=== PATIENT | female | born 1950 | race Caucasian/White ===

== ENCOUNTER 2017-06-05 14:30 | Emergency (ER) | payer MEDICARE, BC ==
[~2017-06-05] VITALS: Ht 170.2 cm; Wt 112.0 kg
[2017-06-05 14:54] VITALS: BP 158/85; PULSE 72; RESP 16; TEMP 98.3; O2SAT 97
[2017-06-05] MEDS ORDERED: HYDR25TA5 PO (15:24)
[2017-06-05] MEDS ORDERED: ASPI-183 PO (15:24)
[2017-06-05] MEDS ORDERED: TRAZ50TA12 PO (15:24)
[2017-06-05] MEDS ORDERED: METF1000 PO (15:24)
[2017-06-05] MEDS ORDERED: SERT-129 PO (15:24)
[2017-06-05] MEDS ORDERED: ATEN50TA PO (15:24)
[2017-06-05] MEDS ORDERED: VALS1TAB65 PO (15:24)
[2017-06-05] MEDS ORDERED: SIMV40TA PO (15:24)
[2017-06-05] MEDS ORDERED: SITA1TAB2 PO (15:24)
[2017-06-05] MEDS ORDERED: SODIUM CHLORID 0.9% 500 ML INJ 500 ML IV ONE (15:30)
--- NOTE | 2017-06-05 15:37 | PD ---
HPI Chief Complaint: GI Complaint Time Seen by Provider: 15:13 Travel History International Travel<30 days: No Contact w/Intl Traveler<30days: No Traveled to known affect area: No History of Present Illness HPI Patient is a 66-year-old female who comes in complaining of congestion, cough, diarrhea. She says she has had a cough with congestion for the past week and feels a dripping down her throat. She says the past 3 days, she has had diarrhea. She took an Imodium yesterday which helped until this morning when she had another episode. She went to urgent care today who told her they thought she could benefit from an antibiotic, but were worried that it could increase her diarrhea. She is not having fevers. She says she has some nausea from the postnasal drip, but denies any vomiting. She denies any abdominal pain. She says she has a lot of pressure in her sinuses. She has tried Mucinex without much relief. Severity is mild to moderate. PFSH Past Medical History Hx Anticoagulant Therapy: Yes (asa 325mg ) Anxiety: Yes Cardiovascular Problems: Yes (htn on meds) High Cholesterol: Yes Diabetes: Yes (type 2) Patient Takes Glucophage: Yes Hypertension: Yes ?: Not Past Surgical History Hysterectomy: Yes Social History Alcohol Use: No Tobacco Use: No (FORMER) Substance Use: No Allergies-Medications (Allergen,Severity, Reaction): Coded Allergies: codeine (Verified Allergy, Intermediate, restless, 06/05/17) Reported Meds & Prescriptions Reported Meds & Active Scripts Active Cipro (Ciprofloxacin HCl) 500 Mg Tab 500 Mg PO BID 5 Days Reported Sertraline (Sertraline HCl) 100 Mg Tab 100 Mg PO HS Trazodone (Trazodone HCl) 50 Mg Tab 50 Mg PO HS Januvia (Sitagliptin Phosphate) 100 Mg Tab 100 Mg PO DAILY Valsartan 160 Mg Tab 160 Mg PO BID Simvastatin 40 Mg Tab 40 Mg PO HS Metformin (Metformin HCl) 1,000 Mg Tab 1,000 Mg PO BIDPC Atenolol 50 Mg Tab 50 Mg PO DAILY Hydrochlorothiazide 25 Mg Tab 25 Mg PO DAILY Aspirin 325 Mg Tab 325 Mg PO DAILY Review of Systems Except as stated in HPI: all other systems reviewed are Neg General / Constitutional: No: Fever, Chills HENT: Positive: Congestion, No: Headaches, Lightheadedness Cardiovascular: No: Chest Pain or Discomfort Respiratory: Positive: Cough Gastrointestinal: Positive: Nausea, Diarrhea, No: Vomiting, Abdominal Pain Genitourinary: No: Dysuria Musculoskeletal: Positive: Weakness, No: Myalgias, Edema Skin: No Rash, No Change in Pigmentation Neurologic: No: Weakness, Dizziness Physical Exam Narrative GENERAL: Awake and alert, in no acute distress. SKIN: Focused skin assessment warm/dry. HEAD: Atraumatic. Normocephalic. EYES: Pupils equal and round. No scleral icterus. ENT: Mucous membranes pink and moist. NECK: Trachea midline. No JVD. CARDIOVASCULAR: Regular rate and rhythm. No murmur appreciated. RESPIRATORY: No accessory muscle use. Clear to auscultation. Breath sounds equal bilaterally. GASTROINTESTINAL: Abdomen soft, non-tender, nondistended. MUSCULOSKELETAL: No obvious deformities. No clubbing. No cyanosis. No edema. NEUROLOGICAL: Awake and alert. No obvious cranial nerve deficits. Motor grossly within normal limits. Normal speech. PSYCHIATRIC: Appropriate mood and affect; insight and judgment normal. Data Data Last Documented VS Vital Signs Date Time Temp Pulse Resp B/P (MAP) Pulse Ox O2 Delivery O2 Flow Rate FiO2 06/05/17 17:20 72 16 138/79 (98) 97 06/05/17 14:54 98.3 Orders Orders Iv Access Insert/Monitor (06/05/17 15:19) Complete Blood Count With Diff (06/05/17 15:19) Comprehensive Metabolic Panel (06/05/17 15:19) Chest, Pa & Lat (06/05/17 ) Influenzae A/B Antigen (06/05/17 15:19) Urinalysis - C+S If Indicated (06/05/17 15:19) Sodium Chlorid 0.9% 500 Ml Inj (Ns 500 M (06/05/17 15:30) Potassium Chloride (Kcl) (06/05/17 16:15) Ciprofloxacin (Cipro) (06/05/17 17:15) Ed Discharge Order (06/05/17 17:05) Labs Laboratory Tests Test 06/05/17 15:20 06/05/17 15:37 Urine Collection Type CLEAN CATCH Urine Color YELLOW Urine Turbidity CLEAR Urine pH 5.5 Urine Specific [place] 1.017 Urine Protein NEG mg/dL Urine Glucose (UA) NEG mg/dL Urine Ketones NEG mg/dL Urine Occult Blood NEG Urine Nitrite NEG Urine Bilirubin NEG Urine Leukocyte Esterase NEG Urine Squamous Epithelial Cells 0-5 /hpf Urine Amorphous Sediment SMALL Urine Bacteria RARE /hpf Microscopic Urinalysis Comment CULT NOT INDICATED White Blood Count 6.4 TH/MM3 Red Blood Count 4.95 MIL/MM3 Hemoglobin 13.9 GM/DL Hematocrit 40.4 % Mean Corpuscular Volume 81.7 FL Mean Corpuscular Hemoglobin 28.1 PG Mean Corpuscular Hemoglobin Concent 34.4 % Red Cell Distribution Width 12.6 % Platelet Count 210 TH/MM3 Mean Platelet Volume 8.1 FL Neutrophils (%) (Auto) 61.1 % Lymphocytes (%) (Auto) 27.4 % Monocytes (%) (Auto) 9.3 % Eosinophils (%) (Auto) 1.8 % Basophils (%) (Auto) 0.4 % Neutrophils # (Auto) 3.9 TH/MM3 Lymphocytes # (Auto) 1.8 TH/MM3 Monocytes # (Auto) 0.6 TH/MM3 Eosinophils # (Auto) 0.1 TH/MM3 Basophils # (Auto) 0.0 TH/MM3 CBC Comment DIFF FINAL Differential Comment Blood Urea Nitrogen 11 MG/DL Creatinine 0.80 MG/DL Random Glucose 159 MG/DL Total Protein 8.3 GM/DL Albumin 3.5 GM/DL Calcium Level 8.8 MG/DL Alkaline Phosphatase 85 U/L Aspartate Amino Transf (AST/SGOT) 22 U/L Alanine Aminotransferase (ALT/SGPT) 30 U/L Total Bilirubin 0.5 MG/DL Sodium Level 134 MEQ/L Potassium Level 3.1 MEQ/L Chloride Level 97 MEQ/L Carbon Dioxide Level 31.0 MEQ/L Anion Gap 6 MEQ/L Estimat Glomerular Filtration Rate 72 ML/MIN [facility] Medical Decision Making Medical Screen Exam Complete: Yes Emergency Medical Condition: Yes Differential Diagnosis Viral illness versus influenza versus electrolyte abnormality versus dehydration versus pneumonia Narrative Course Patient is a 66-year-old female who comes in complaining of cough, congestion, diarrhea. Exam shows no acute abnormalities. IV establish, labs sent. Chest x -ray ordered. Given IV fluids. Signed out to Dr. Browne to follow up testing and disposition the patient. Scripts Ciprofloxacin (Cipro) 500 Mg Tab 500 MG PO BID for Infection for 5 Days, #10 TAB 0 Refills Prov: Leighton Browne MD 06/05/17 Ida Crouch MD Jun 05, 2017 15:37
[2017-06-05 15:52] LABS: AUTOMATED NEUTROPHIL # 3.9 TH/MM3 (1.8-7.7); BASOPHIL % 0.4 % (0.0-2.0); EOSINOPHIL # 0.1 TH/MM3 (0-0.4); EOSINOPHIL % 1.8 % (0.0-4.0); HEMATOCRIT 40.4 % (35.0-46.0); HEMOGLOBIN 13.9 GM/DL (11.6-15.3); LYMPH % 27.4 % (9.0-44.0); LYMPHOCYTE # 1.8 TH/MM3 (1.0-4.8); MEAN CELL VOLUME 81.7 FL (80.0-100.0); MEAN CORPUSCULAR HEMOGLOBIN 28.1 PG (27.0-34.0); MEAN CORPUSCULAR HGB CONC 34.4 % (32.0-36.0); MEAN PLATELET VOLUME 8.1 FL (7.0-11.0); MONO % 9.3 % (0.0-8.0); MONOCYTE # 0.6 TH/MM3 (0-0.9); NEUT % 61.1 % (16.0-70.0); PLATELET COUNT 210 TH/MM3 (150-450); RED BLOOD COUNT 4.95 MIL/MM3 (4.00-5.30); RED CELL DISTRIBUTION WIDTH 12.6 % (11.6-17.2); WHITE BLOOD COUNT 6.4 TH/MM3 (4.0-11.0)
[2017-06-05 15:55] LABS: BILIRUBIN, URINE NEG (NEG); BLOOD, URINE NEG (NEG); GLUCOSE,URINE NEG (NEG); KETONE, URINE NEG (NEG); NITRITE,URINE NEG (NEG); PH, URINE 5.5 (5.0-8.5); URINE LEUKOCYTE ESTERASE NEG (NEG)
[2017-06-05 16:00] LABS: CHLORIDE 97 MEQ/L (98-107); SODIUM (NA) 134 MEQ/L (136-145)
[2017-06-05 16:03] LABS: CALCIUM 8.8 MG/DL (8.5-10.1)
[2017-06-05 16:03] LABS: URINE COLOR YELLOW (YELLW/STRAW)
[2017-06-05 16:04] LABS: BACTERIA, URINE RARE /hpf; SQUAMOUS EPITHELIAL CELL URINE 0-5 /hpf (0-5)
[2017-06-05 16:04] LABS: ALBUMIN 3.5 GM/DL (3.4-5.0); BLOOD UREA NITROGEN 11 MG/DL (7-18); GLUCOSE,RANDOM 159 MG/DL (74-106)
[2017-06-05 16:05] LABS: AMORPHOUS SEDIMENT, URINE SMALL
[2017-06-05 16:07] LABS: ALT (GPT) 30 U/L (10-53); AST (GOT) 22 U/L (15-37); GLOMERULAR FILTRATION RATE 72 ML/MIN (>89)
[2017-06-05 16:08] LABS: TOTAL BILIRUBIN ADULT 0.5 MG/DL (0.2-1.0)
[2017-06-05 16:09] LABS: TOTAL PROTEIN 8.3 GM/DL (6.4-8.2)
[2017-06-05 16:10] LABS: ALKALINE PHOSPHATASE 85 U/L (45-117)
[2017-06-05] MEDS ORDERED: POTASSIUM CHLORIDE 20 MEQ CONTROLLED RELEASE TAB PO ONE (16:15)
--- NOTE | 2017-06-05 16:24 | RADRPT ---
EXAM DATE/TIME: 06/05/2017 16:09 [place] COMPARISON: No previous studies available for comparison. INDICATIONS : Cough. MEDICAL HISTORY : None. SURGICAL HISTORY : None. ENCOUNTER: Initial ACUITY: 1 week PAIN SCORE: 0/10 LOCATION: chest FINDINGS: PA and lateral views of the chest demonstrate the lungs to be symmetrically aerated without evidence of mass, infiltrate or effusion. The cardiomediastinal contours are unremarkable. Osseous structure s are intact with minimal degenerative disc disease of the dorsal spine. CONCLUSION: No acute cardiopulmonary process. Eddie Zeng MD on June 05, 2017 at 16:19 Board Certified Radiologist. This report was verified electronically.
[2017-06-05] MEDS ORDERED: CIPR-9 PO (17:04)
--- NOTE | 2017-06-05 17:04 | PD ---
Data Data Last Documented VS Vital Signs Date Time Temp Pulse Resp B/P (MAP) Pulse Ox O2 Delivery O2 Flow Rate FiO2 06/05/17 15:15 16 06/05/17 14:54 98.3 72 158/85 (109) 97 Orders Orders Iv Access Insert/Monitor (06/05/17 15:19) Complete Blood Count With Diff (06/05/17 15:19) Comprehensive Metabolic Panel (06/05/17 15:19) Chest, Pa & Lat (06/05/17 ) Influenzae A/B Antigen (06/05/17 15:19) Urinalysis - C+S If Indicated (06/05/17 15:19) Sodium Chlorid 0.9% 500 Ml Inj (Ns 500 M (06/05/17 15:30) Potassium Chloride (Kcl) (06/05/17 16:15) Ciprofloxacin (Cipro) (06/05/17 17:15) Labs Laboratory Tests Test 06/05/17 15:20 06/05/17 15:37 Urine Collection Type CLEAN CATCH Urine Color YELLOW Urine Turbidity CLEAR Urine pH 5.5 Urine Specific [place] 1.017 Urine Protein NEG mg/dL Urine Glucose (UA) NEG mg/dL Urine Ketones NEG mg/dL Urine Occult Blood NEG Urine Nitrite NEG Urine Bilirubin NEG Urine Leukocyte Esterase NEG Urine Squamous Epithelial Cells 0-5 /hpf Urine Amorphous Sediment SMALL Urine Bacteria RARE /hpf Microscopic Urinalysis Comment CULT NOT INDICATED White Blood Count 6.4 TH/MM3 Red Blood Count 4.95 MIL/MM3 Hemoglobin 13.9 GM/DL Hematocrit 40.4 % Mean Corpuscular Volume 81.7 FL Mean Corpuscular Hemoglobin 28.1 PG Mean Corpuscular Hemoglobin Concent 34.4 % Red Cell Distribution Width 12.6 % Platelet Count 210 TH/MM3 Mean Platelet Volume 8.1 FL Neutrophils (%) (Auto) 61.1 % Lymphocytes (%) (Auto) 27.4 % Monocytes (%) (Auto) 9.3 % Eosinophils (%) (Auto) 1.8 % Basophils (%) (Auto) 0.4 % Neutrophils # (Auto) 3.9 TH/MM3 Lymphocytes # (Auto) 1.8 TH/MM3 Monocytes # (Auto) 0.6 TH/MM3 Eosinophils # (Auto) 0.1 TH/MM3 Basophils # (Auto) 0.0 TH/MM3 CBC Comment DIFF FINAL Differential Comment Blood Urea Nitrogen 11 MG/DL Creatinine 0.80 MG/DL Random Glucose 159 MG/DL Total Protein 8.3 GM/DL Albumin 3.5 GM/DL Calcium Level 8.8 MG/DL Alkaline Phosphatase 85 U/L Aspartate Amino Transf (AST/SGOT) 22 U/L Alanine Aminotransferase (ALT/SGPT) 30 U/L Total Bilirubin 0.5 MG/DL Sodium Level 134 MEQ/L Potassium Level 3.1 MEQ/L Chloride Level 97 MEQ/L Carbon Dioxide Level 31.0 MEQ/L Anion Gap 6 MEQ/L Estimat Glomerular Filtration Rate 72 ML/MIN [facility] Supervised Visit with ELSY: No Narrative Course The patient was initially evaluated by the previous provider and signed out to me at the beginning my shift pending labs and disposition. See her note for further details. Briefly this is a 66-year-old female who was sent here from urgent care facility for evaluation of diarrhea and upper respiratory symptoms. The patient reports flulike symptoms with fever, cough, nasal congestion for 1 week. For last 3 days she has had loose/watery diarrhea. No melena or hematochezia. No abdominal pain. Vital signs reviewed. CBC is unremarkable. CMP is remarkable for sodium 134, potassium 3.1, chloride 97. Potassium was replaced orally. UA shows rare bacteria. Influenza is negative. Chest x-ray shows no acute disease. The patient was made aware of all findings. She is resting comfortably. Plan is to start her on Cipro for 5 days which would treat her bacteriuria and could help with her diarrhea. She has no C. difficile risk factors. She has not been hospitalized recently, has had no recent travel, has not been on any antibiotics recently. She is stable for discharge home with outpatient follow-up. She was advised on when to return to the emergency department. She verbalizes understanding and agreement with plan. Diagnosis Primary Impression: Bacteriuria Additional Impressions: URI (upper respiratory infection) Qualified Codes: J06.9 - Acute upper respiratory infection, unspecified Diarrhea Qualified Codes: R19.7 - Diarrhea, unspecified Hypokalemia Referrals: Primary Care Physician 3 days Additional Instruction: Follow-up with a primary care physician this week. Stay hydrated with plenty of fluids. Return to the emergency department for worsening symptoms or any other concerns. Scripts Ciprofloxacin (Cipro) 500 Mg Tab 500 MG PO BID for Infection for 5 Days, #10 TAB 0 Refills Prov: Leighton Browne MD 06/05/17 Disposition: 01 DISCHARGE HOME Condition: Stable Leighton Browne MD Jun 05, 2017 17:04
[2017-06-05] MEDS ORDERED: CIPROFLOXACIN 500 MG TAB PO ONE (17:15)
[2017-06-05 17:20] VITALS: BP 138/79
== END 2017-06-05 17:22 | disposition home or self-care (01) ==
LOC: PHED 14:30
DX: R82.71 Bacteriuria (principal); J06.9 Acute upper respiratory infection, unspecified; R19.7 Diarrhea, unspecified; E87.6 Hypokalemia; I10 Essential (primary) hypertension; E78.00 Pure hypercholesterolemia, unspecified; E11.9 Type 2 diabetes mellitus without complications; Z79.82 Long term (current) use of aspirin; Z88.5 Allergy status to narcotic agent
CPT/HCPCS: 71046; 80053; 81001; 85025; 87804; 96360; 99284; J7040

== ENCOUNTER 2017-06-07 11:28 | Emergency (ER) | payer MEDICARE, BC ==
[~2017-06-07] VITALS: Ht 170.2 cm; Wt 110.9 kg
[~2017-06-07 11:28] MED LIST: ASPI-183 PO; ATEN50TA PO; CIPR-9 PO; HYDR25TA5 PO; METF1000 PO; SERT-129 PO; SIMV40TA PO; SITA1TAB2 PO; TRAZ50TA12 PO; VALS1TAB65 PO
[2017-06-07 11:45] VITALS: BP 239/115; PULSE 79; RESP 18; TEMP 98.2; O2SAT 97
[2017-06-07 12:42] LABS: BILIRUBIN, URINE NEG (NEG); GLUCOSE,URINE NEG (NEG); KETONE, URINE NEG (NEG); NITRITE,URINE NEG (NEG); URINE LEUKOCYTE ESTERASE NEG (NEG)
[2017-06-07 12:43] LABS: AUTOMATED NEUTROPHIL # 4.8 TH/MM3 (1.8-7.7); BASOPHIL % 0.6 % (0.0-2.0); EOSINOPHIL # 0.1 TH/MM3 (0-0.4); EOSINOPHIL % 1.6 % (0.0-4.0); HEMATOCRIT 39.8 % (35.0-46.0); HEMOGLOBIN 13.1 GM/DL (11.6-15.3); LYMPH % 22.3 % (9.0-44.0); LYMPHOCYTE # 1.5 TH/MM3 (1.0-4.8); MEAN CORPUSCULAR HEMOGLOBIN 27.1 PG (27.0-34.0); MONO % 7.7 % (0.0-8.0); MONOCYTE # 0.5 TH/MM3 (0-0.9); NEUT % 67.8 % (16.0-70.0); PLATELET COUNT 219 TH/MM3 (150-450); RED BLOOD COUNT 4.85 MIL/MM3 (4.00-5.30); RED CELL DISTRIBUTION WIDTH 12.3 % (11.6-17.2); WHITE BLOOD COUNT 6.9 TH/MM3 (4.0-11.0)
[2017-06-07 12:47] LABS: BLOOD, URINE TRACE (NEG)
[2017-06-07 12:48] LABS: AMORPHOUS SEDIMENT, URINE FEW; SQUAMOUS EPITHELIAL CELL URINE 0-5 /hpf (0-5); URINE COLOR YELLOW (YELLW/STRAW)
[2017-06-07 12:52] LABS: BICARBONATE 30.2 MEQ/L (21.0-32.0); CALCIUM 8.5 MG/DL (8.5-10.1)
[2017-06-07 12:56] LABS: CREATININE 0.79 MG/DL (0.50-1.00)
[2017-06-07] MEDS ORDERED: POTA-163 PO (13:04)
--- NOTE | 2017-06-07 13:06 | PD ---
HPI . Nausea and loose stools Chief Complaint: Cold / Flu Symptoms Time Seen by Provider: 11:59 Travel History International Travel<30 days: No Contact w/Intl Traveler<30days: No Traveled to known affect area: No History of Present Illness HPI This patient presents stating that she feels nauseous and is having loose stools. She reports a flulike illness for over a week. She presented to an urgent care center on 06/05 with her flulike symptoms associated with diarrhea. The urgent care center was concerned about the diarrhea and sent her to us for further evaluation. She was found to have mild hypokalemia and rare bacteria on her urinalysis. She was discharged on Cipro. She states that she has developed nausea since being on the Cipro and that she just generally feels worse now than she did 2 days ago. Symptoms remained mild. She is complaining with nasal congestion, nausea, myalgias and loose stools. She states that the stools are actually improved. PFSH Past Medical History Hx Anticoagulant Therapy: Yes (ASA 325MG DAILY) Anxiety: Yes Cardiovascular Problems: Yes (htn on meds) High Cholesterol: Yes Diabetes: Yes (type 2) Hypertension: Yes ?: Not Past Surgical History Hysterectomy: Yes Social History Alcohol Use: No Tobacco Use: No (FORMER) Substance Use: No Allergies-Medications (Allergen,Severity, Reaction): Coded Allergies: codeine (Verified Allergy, Intermediate, restless, 06/07/17) Reported Meds & Prescriptions Reported Meds & Active Scripts Active Cipro (Ciprofloxacin HCl) 500 Mg Tab 500 Mg PO BID 5 Days Reported Sertraline (Sertraline HCl) 100 Mg Tab 100 Mg PO HS Trazodone (Trazodone HCl) 50 Mg Tab 50 Mg PO HS Januvia (Sitagliptin Phosphate) 100 Mg Tab 100 Mg PO DAILY Valsartan 160 Mg Tab 160 Mg PO BID Simvastatin 40 Mg Tab 40 Mg PO HS Metformin (Metformin HCl) 1,000 Mg Tab 1,000 Mg PO BIDPC Atenolol 50 Mg Tab 50 Mg PO DAILY Hydrochlorothiazide 25 Mg Tab 25 Mg PO DAILY Aspirin 325 Mg Tab 325 Mg PO DAILY Review of Systems Except as stated in HPI: all other systems reviewed are Neg General / Constitutional: No: Fever, Chills HENT: Positive: Congestion Gastrointestinal: Positive: Nausea, Diarrhea Genitourinary: No: Urgency, Frequency, Dysuria Musculoskeletal: Positive: Myalgias Physical Exam Narrative Vital Signs Date Time Temp Pulse Resp B/P (MAP) Pulse Ox O2 Delivery O2 Flow Rate FiO2 06/07/17 11:45 98.2 79 18 239/115 (156) 97 GENERAL: Awake and alert and in no acute distress. She does not appear ill at all. SKIN: Warm and dry. Normal color and turgor. HEAD: Normocephalic/atraumatic. EYES: Pupils are equal. Extraocular movements are intact. ENT: Scant clear nasal drainage. NECK: Normal range of motion. No cervical lymphadenopathy. Supple. CARDIOVASCULAR: Regular rate and rhythm. Heart sounds normal. RESPIRATORY: Nonlabored respirations. Lungs clear with full air movement throughout. MUSCULOSKELETAL: Atraumatic. NEUROLOGICAL: Nonfocal. PSYCHIATRIC: Appropriate mood and affect. Data Data Last Documented VS Vital Signs Date Time Temp Pulse Resp B/P (MAP) Pulse Ox O2 Delivery O2 Flow Rate FiO2 06/07/17 11:45 98.2 79 18 239/115 (156) 97 Orders Orders Urinalysis - C+S If Indicated (06/07/17 12:11) Complete Blood Count With Diff (06/07/17 12:11) Basic Metabolic Panel (Bmp) (06/07/17 12:11) Labs Laboratory Tests Test 06/07/17 12:30 White Blood Count 6.9 TH/MM3 Red Blood Count 4.85 MIL/MM3 Hemoglobin 13.1 GM/DL Hematocrit 39.8 % Mean Corpuscular Volume 82.0 FL Mean Corpuscular Hemoglobin 27.1 PG Mean Corpuscular Hemoglobin Concent 33.0 % Red Cell Distribution Width 12.3 % Platelet Count 219 TH/MM3 Mean Platelet Volume 8.0 FL Neutrophils (%) (Auto) 67.8 % Lymphocytes (%) (Auto) 22.3 % Monocytes (%) (Auto) 7.7 % Eosinophils (%) (Auto) 1.6 % Basophils (%) (Auto) 0.6 % Neutrophils # (Auto) 4.8 TH/MM3 Lymphocytes # (Auto) 1.5 TH/MM3 Monocytes # (Auto) 0.5 TH/MM3 Eosinophils # (Auto) 0.1 TH/MM3 Basophils # (Auto) 0.0 TH/MM3 CBC Comment DIFF FINAL Differential Comment Urine Collection Type CLEAN CATCH Urine Color YELLOW Urine Turbidity CLEAR Urine pH 6.0 Urine Specific [place] 1.014 Urine Protein NEG mg/dL Urine Glucose (UA) NEG mg/dL Urine Ketones NEG mg/dL Urine Occult Blood TRACE Urine Nitrite NEG Urine Bilirubin NEG Urine Leukocyte Esterase NEG Urine Squamous Epithelial Cells 0-5 /hpf Urine Amorphous Sediment FEW Microscopic Urinalysis Comment CULT NOT INDICATED Urine Collection Time 1230 Blood Urea Nitrogen 8 MG/DL Creatinine 0.79 MG/DL Random Glucose 157 MG/DL Calcium Level 8.5 MG/DL Sodium Level 138 MEQ/L Potassium Level 3.2 MEQ/L Chloride Level 101 MEQ/L Carbon Dioxide Level 30.2 MEQ/L Anion Gap 7 MEQ/L Estimat Glomerular Filtration Rate 73 ML/MIN [facility] Medical Decision Making Medical Screen Exam Complete: Yes Emergency Medical Condition: Yes Medical Record Reviewed: Yes (please see HPI for pertinent review of records) Differential Diagnosis Differential diagnosis includes but is not limited to influenza, upper respiratory infection, bronchitis, pneumonia Narrative Course This patient presents with the chief complaint of nausea since being started on Cipro 2 days ago for bacteriuria. She also continues to complain with flulike symptoms. She has been sick for more than a week. Her physical exam was unremarkable. CBC & BMP Diagram 06/07/17 12:30 Calcium Level 8.5 UA is negative. I will asked the patient to stop the Cipro. I will give her discharge instructions for supportive care for treatment of upper respiratory illnesses. I will supplement her potassium. She takes HCTZ and is not on a potassium replacement. I will start her on 20 mEq daily. I will ask her to follow up with her doctor in about a week for recheck. Diagnosis Primary Impression: Viral syndrome Additional Impression: Hypokalemia Referrals: Primary Care Physician 1 week To have potassium rechecked Patient Instructions: General Instructions, Viral Syndrome (DC) Additional Instructions: Stop the Cipro. I recommend the use of a Neti Pot. You may use a nasal spray such as Afrin for up to 3 days as needed for nasal congestion. You may take an prwi-rep-hycjfwg antihistamine such as Zyrtec, Bia or Claritin as needed for runny secretions. You may take pseudoephedrine as needed for congestion. You will need to sign for this at the pharmacy. You may take plain Mucinex, 1200 mg twice a day as needed for thick secretions. You may take a cough syrup such as Delsym as needed for cough. Motrin as needed for fever and body aches. Throat lozenges/sprays as needed for sore throat. Warm salt water gargles for sore throat. Hot tea with lemon and honey also helps soothe a sore throat. Med/Other Pt SpecificInfo: Prescription(s) given Scripts Potassium Chloride ER (Potassium Chloride ER) 20 Meq Tab 20 MEQ PO DAILY for Electrolyte Replacement, #30 TAB 0 Refills Prov: Leonor Tran MD 06/07/17 Disposition: 01 DISCHARGE HOME Condition: Stable Leonor Tran MD Jun 07, 2017 13:06
[2017-06-07 13:52] VITALS: BP 206/94; PULSE 64; RESP 20; O2SAT 96
== END 2017-06-07 14:31 | disposition home or self-care (01) ==
LOC: PHED 11:28
DX: B34.9 Viral infection, unspecified (principal); E87.6 Hypokalemia; E11.9 Type 2 diabetes mellitus without complications; E78.00 Pure hypercholesterolemia, unspecified; I10 Essential (primary) hypertension; Z79.82 Long term (current) use of aspirin; Z79.84 Long term (current) use of oral hypoglycemic drugs; Z87.891 Personal history of nicotine dependence
CPT/HCPCS: 80048; 81001; 85025; 99283